=== PATIENT | female | born 1940 | race Caucasian/White ===

== ENCOUNTER 2022-10-10 19:49 | Observation (INO) | payer MEDICARE, BC, SELFPAY ==
[2022-10-10 20:14] VITALS: BP 130/69; PULSE 75; RESP 16; TEMP 37.2; O2SAT 95; BMI 22.9
--- NOTE | 2022-10-10 20:37 | ED.GENADULT ---
HPI - General Adult General Chief complaint: Weakness Stated complaint: inability to care for self at home Time Seen by Provider: 10/10/22 20:24 History of Present Illness HPI narrative: EMS report discharge from [facility] yesterday for pneumonia. Per EMS family is unable to take care of her at home and wants assistance with fdc or outside services. Patient is alert to self with obvious memory and cognitive deficits. We got to bedside commode with assist of two. Patient complained of leg pain and needed both verbal and physical cues to pivot transfer. 82-year-old woman presenting to the emergency department via EMS with increased weakness. History of Kalpana's granulomatosis. Over this last week has been hospitalized twice at [facility]. Discharged twice. Was diagnosed with pneumonia. The course of treatment is developed diarrhea. Looks like was initiated on discharged yesterday on lactobacillus and doxycycline benzonatate and guaifenesin. Metamucil as well apparently. In vancomycin presumably for diarrhea. Family unfamiliar with diagnosis of C difficile. She was discontinued on azithromycin and cefdinir. During this hospitalization between the and her 1 over this last week, she did receive a CT scan. This was noted to have worsening pneumonia. I have otherwise not seen results of this. Family is here requesting Care because she continues to be weak and confused over the course of the day. Unable to care for her at home. She could not get up from the table this evening. Her does have COPD. There is some underlying dementia as well. They are hoping for longer stay transitioning to rehab. This evening around supper was shaking and chilled. No chest pain or shortness of breath. Reportedly during this week tested negative for COVID, influenza, RSV. Related Data Home Medications Medication Instructions Recorded Confirmed Lactobacillus rhamnosus GG 10 1 cap PO BID 10/10/22 10/10/22 billion cell capsule acetaminophen 650 mg 1,300 mg PO Q12H 10/10/22 10/11/22 tablet,extended release (8HR Muscle Aches-Pain) amlodipine 2.5 mg tablet 2.5 mg PO DAILY 10/10/22 10/10/22 benzonatate 100 mg capsule 100 mg PO TID PRN 10/10/22 10/11/22 calcium carbonate 600 mg-vitamin 1 tab PO DAILY 10/10/22 10/10/22 D3 5 mcg (200 unit) tablet (Calcium 600 + D(3)) carvedilol 12.5 mg tablet 6.25 mg PO BID 10/10/22 10/10/22 doxycycline hyclate 100 mg capsule 100 mg PO BID 10/10/22 10/10/22 famotidine 20 mg tablet 20 mg PO DAILY PRN 10/10/22 10/11/22 fluticasone propionate 110 2 puff inhalation BID 10/10/22 10/10/22 mcg/actuation HFA aerosol inhaler (Flovent HFA) folic acid 1 mg tablet 1 mg PO DAILY 10/10/22 10/10/22 guaifenesin 600 mg tablet, 600 mg PO Q12H 10/10/22 10/11/22 extended release 12 hr ipratropium 0.5 mg-albuterol 3 mg 3 ml inhalation QID PRN 10/10/22 10/11/22 (2.5 mg base)/3 mL nebulization soln losartan 50 mg tablet 50 mg PO DAILY 10/10/22 10/10/22 metformin 500 mg tablet 500 mg PO DAILY 10/10/22 10/10/22 pregabalin 75 mg capsule 75 - 150 mg PO BID 10/10/22 10/11/22 timolol maleate 0.5 % eye drops 1 drp ophthalmic (eye) .AM 10/10/22 10/10/22 tramadol 50 mg tablet 25 - 50 mg PO HS PRN 10/10/22 10/10/22 trazodone 50 mg tablet 25 mg PO HS PRN 10/10/22 10/11/22 triamcinolone acetonide 0.1 % 1 applic topical BID PRN 10/10/22 10/10/22 topical cream vancomycin 125 mg capsule 125 mg PO QID 10/10/22 10/11/22 multivitamin (Daily Multi-Vitamin 1 tab PO DAILY 10/11/22 10/11/22 tablet) sodium chloride 0.9 % for 3 ml inhalation Q6H PRN 10/11/22 10/11/22 nebulization triamcinolone acetonide 55 mcg 2 spray intranasal DAILY 10/11/22 10/11/22 nasal spray aerosol (24 Hour Nasal Allergy) Allergies Allergy/AdvReac Type Severity Reaction Status Date / Time amoxicillin Allergy Intermediate Hives Verified 10/10/22 20:14 latex Allergy Intermediate Rash Verified 10/10/22 20:14 celecoxib [From Celebrex] AdvReac Severe nephritis Verified 10/10/22 20:14 NSAIDS (Non-Steroidal AdvReac Severe Wegners Verified 10/10/22 20:14 Anti-Inflamma granulomatosis omeprazole AdvReac Severe tubular Verified 10/10/22 20:14 nephritis azathioprine AdvReac Intermediate Nausea Verified 10/11/22 07:39 duloxetine [From Cymbalta] AdvReac Intermediate Diarrhea Verified 10/10/22 20:14 lisinopril AdvReac Intermediate Cough Verified 10/10/22 20:14 milk AdvReac Intermediate Gastrointestinal Verified 10/10/22 20:14 Upset Review of Systems Status of ROS: Reports: 6 or more systems reviewed and unremarkable except as noted in History and below [facility] Medical History (Updated 10/11/22 @ 13:12 by Doug Artis MD) Discharge planning issues ?Z02.9 - Encounter for administrative examinations, unspecified (ICD-10) Dementia ?F03.90 - Unspecified dementia, unspecified severity, without behavioral disturbance, psychotic disturbance, mood disturbance, and anxiety (ICD-10) Moderate malnutrition ?E44.0 - Moderate protein-calorie malnutrition (ICD-10) Pulmonary nodule ?R91.1 - Solitary pulmonary nodule (ICD-10) Lupus erythematosus ?L93.0 - Discoid lupus erythematosus (ICD-10) Falls ?W19.XXXA - Unspecified fall, initial encounter (ICD-10) Type 2 diabetes mellitus without complication ?E11.9 - Type 2 diabetes mellitus without complications (ICD-10) C. 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 - Ocular hypertension, bilateral (ICD-10) Impaired fasting glucose ?R73.01 - Impaired fasting glucose (ICD-10) Hay's granulomatosis (~08/06/09) ?M31.30 - Hay's granulomatosis without renal involvement (ICD-10) Esophageal reflux ?K21.9 - Gastro-esophageal reflux disease without esophagitis (ICD-10) Hyperlipidemia ?E78.5 - Hyperlipidemia, unspecified (ICD-10) Psoriasis ?L40.9 - Psoriasis, unspecified (ICD-10) Essential hypertension ?I10 - Essential (primary) hypertension (ICD-10) Rheumatoid arthritis ?M06.9 - Rheumatoid arthritis, unspecified (ICD-10) Surgical History (Updated 10/10/22 @ 23:03 by Florina James MD) S/P YAG capsulotomy (~01/02/13) ?Z98.890 - Other specified postprocedural states (ICD-10) [place] teeth extracted ?K08.409 - Partial loss of teeth, unspecified cause, unspecified class (ICD-10) S/P ROME-BSO (~1992) ?Z90.710 - Acquired absence of both cervix and uterus (ICD-10) ?Z90.722 - Acquired absence of ovaries, bilateral (ICD-10) ?Z90.79 - Acquired absence of other genital organ(s) (ICD-10) S/P ORIF (open reduction internal fixation) fracture (~1956) ?Z98.890 - Other specified postprocedural states (ICD-10) ?Z87.81 - Personal history of (healed) traumatic fracture (ICD-10) H/O nasal septoplasty ?Z98.890 - Other specified postprocedural states (ICD-10) Hx of colonoscopy ?Z98.890 - Other specified postprocedural states (ICD-10) H/O cataract extraction ?Z98.49 - Cataract extraction status, unspecified eye (ICD-10) History of surgical procedure on eye proper using laser (~2015) ?Z98.890 - Other specified postprocedural states (ICD-10) History of bronchoscopy ?Z98.890 - Other specified postprocedural states (ICD-10) Family History (Updated 10/10/22 @ 23:04 by Florina James MD) Father Cardiovascular disease Mother Cardiovascular disease Sister High cholesterol Social History (Updated 10/11/22 @ 00:22 by Florina James MD) Narrative: Lives with in her own home. Due to recent hospitalizations and weakness, her had started searching for assisted living. She desires to be full code. What is your current living situation: I presently have a place to live Problems where you live: no known problems Problems where you live details: n/a In the past 12 months, utilities in danger of being shut off: no In the past 12 mos, have been you worried that your food would run out before you had money to buy more?: never true In the past 12 mos, the food you bought just didn't last and you didn't have money to buy more?: never true Highest level of school completed/degree received: some college, no degree Smoking Status: Former smoker What tobacco products do you use: cigarettes Smoking packs per day: 0.5 Smoking cigarettes per day: 10.0 Years smoked: 20 Smoking pack-years: 10.00 Smoking quit date/years: >15 years ago Do you use any of these nicotine containing products: None How often do you have a drink containing alcohol: never AUDIT-C Alcohol total score: 0 Non-prescribed substance use: denies use Caffeine: Yes How often does anyone, including family, friends and others, physically hurt you: How often does anyone, including family, friends and others, insult or talk down to you: How often does anyone, including family, friends and others, threaten you with harm: How often does anyone, including family, friends and others, scream or curse at you: service: No Exam Narrative: Exam Narrative: Pleasant. Quite alert. Has a little bit of trouble with recall. Breathing easily. Skin is warm and dry. Lower extremities without ankle edema. Well perfused in extremities. Lungs with good air movement. There is crepitus throughout the left lower lung. No wheeze. Heart in a regular rate and rhythm. Abdomen is protuberant soft hyperactive bowel sounds nontender. Skin is quite warm. She is trembling huddling under blankets. Const: Vital Signs, click to edit/add: Vital Signs - 24 hr 10/10/22 20:14 Temperature 98.9 F Pulse Rate [Pulse Oximeter] 75 Respiratory Rate 16 Blood Pressure [Ri ght Upper Arm] 130/69 Pulse Oximetry 95 Oxygen Delivery Me thod Room Air Documenting provider has reviewed patient's vital signs: yes Course Vital Signs Vital signs: Initial Vital Signs Temperature 98.9 F 10/10/22 20:14 Temperature Source Temporal Artery Scan 10/10/22 20:14 Pulse Rate 75 10/10/22 20:14 Respiratory Rate 16 10/10/22 20:14 Blood Pressure 130/69 10/10/22 20:14 Blood Pressure Mean 89 10/10/22 20:14 Pulse Oximetry 95 10/10/22 20:14 Oxygen Delivery Method Room Air 10/10/22 20:14 Vital Signs Temperature 98.9 F 10/10/22 20:14 Pulse Rate 75 10/10/22 20:14 Respiratory Rate 16 10/10/22 20:14 Blood Pressure 130/69 10/10/22 20:14 Pulse Oximetry 95 10/10/22 20:14 Oxygen Delivery Method Room Air 10/10/22 20:14 Temperature 98.8 F 10/12/22 07:54 Pulse Rate 83 10/12/22 07:54 Respiratory Rate 16 10/12/22 07:54 Blood Pressure 111/70 10/12/22 07:54 Pulse Oximetry 93 10/12/22 07:54 Oxygen Delivery Method Room Air 10/12/22 07:54 Medical Decision Making MDM Narrative Medical decision making narrative: Certainly sepsis is in differential. Vitals actual look good. A repeat chest x-ray. Check labs. I am anticipating admission. She is reportedly too weak to be taken care of at home. Collecting blood cultures. Will also order C diff. was initiated on vancomycin it appears though I can not find documentation of a positive C diff test at this time in the records I am reviewing. Labs are overall reassuring though CRP rather elevated. Lactate normal. She did receive a L of normal saline. Overall did seem to have a little more energy. Chest x-ray reviewed by me does show clear infiltrate through the right lung but somewhat multifocal. Radiology over-read as below HISTORY: Recent pneumonia. Chills. COMPARISON: None available FINDINGS: A portable erect AP view of the chest was obtained at 21 32 hours. There is moderate linear patchy infiltrate in the right lower lung. There is patchy density throughout the retrocardiac left lower lobe. These are probably areas of multifocal pneumonia. There is mild vascular engorgement and mild diffuse interstitial pulmonary edema, findings of mild congestive failure. There is no sign of a pleural effusion. The heart is normal in size. There is a rounded density in the medial retrocardiac region which is probably a moderate sized hiatal hernia. There is mild scoliosis of the thoracic spine convex towards the right and of the lumbar spine convex towards the left. IMPRESSION: Mild patchy and linear right lower lung and patchy retrocardiac infiltrates, consistent with multifocal pneumonia. Probable moderate-sized hiatal hernia. Have discussed with hospitalist. Thankfully accepting provisionally for admission. Lab Data Lab results reviewed: Yes I reviewed the patient's lab results Labs: Lab Results 10/10/22 10/10/22 Range/Units 20:48 21:20 WBC 6.24 (4.50-11.00) K/uL RBC 3.83 L (4.00-5.20) m/uL Hgb 11.6 L (12.0-16.0) gm/dL Hct 35.2 (33.0-51.0) % MCV 92 (80-100) fL MCH 30 (26-34) pg MCHC 33 (32-36) gm/dL RDW Coeff of Nathalia 13.6 (11.5-15.5) % Plt Count 288 (140-440) K/uL Neut % (Auto) 67.8 (42.0-72.0) % Lymph % (Auto) 12.3 L (20-44) % [place] % (Auto) 11.4 H (0.0-11.0) % Eos % (Auto) 7.5 H (0.0-7.0) % Baso % (Auto) 0.5 (0.0-3.0) % Neut # (Auto) 4.23 (1.7-7.0) K/uL Lymph # (Auto) 0.80 L (0.90-2.90) K/uL [place] # (Auto) 0.70 (0.00-0.90) K/UL Eos # (Auto) 0.50 (0.00-0.50) K/uL Baso # (Auto) 0.03 (0.00-0.30) K/uL Sodium 134 L (135-149) mmol/L Potassium 3.8 (3.6-5.1) mmol/L Chloride 101 (96-114) mmol/L Carbon Dioxide 25 (20-32) mmol/L BUN 12 (7-30) mg/dL Creatinine 0.5 (0.5-1.5) mg/dL Estimated Creat Clear 35.49 Estimated GFR 95 ml/min Glucose 125 H (60-115) mg/dL Lactate 0.9 (0.5-1.9) mmol/L Calcium 9.7 (8.4-10.6) mg/dL Total Bilirubin 0.4 (0.1-1.5) mg/dL Direct Bilirubin 0.2 (0.0-0.5) mg/dL AST 29 (12-35) U/L ALT 27 (4-35) U/L Alkaline Phosphatase 73 (40-150) U/L C-Reactive Protein 12.0 H (0.5-1.0) mg/dL NT-Pro-B Natriuret Pep 424 pg/mL Total Protein 6.1 (6.0-8.3) g/dL Albumin 3.5 (3.3-5.0) g/dL Procalcitonin 0.14 (<0.50) ng/mL Urine Color Yellow (Yellow) Urine Appearance Clear (Clear) Urine pH 6.0 (5.0-8.5) Ur Specific [place] 1.015 (1.000-1.030) Urine Protein 1+ A (Negative) Urine Glucose (UA) Negative (Negative) Urine Ketones Trace A (Negative) Urine Blood Trace-lysed A (Negative) Urine Nitrite Negative (Negative) Urine Bilirubin Negative (Negative) Urine Urobilinogen 0.2 (0.2-1.0) Ur Leukocyte Esterase Negative (Negative) Urine RBC 0-2 (0-2) Urine WBC 0-2 (0-5) Ur Squamous Epith Cells None (None-Few) Calcium Oxalate Crystal Moderate A (None) Other Sediment Few A (None) Urine Bacteria Few A (None) Discharge Plan Discharge Clinical Impression: Weakness, Pneumonia Patient Disposition: Admitted As Inpatient Condition: Stable
[2022-10-10 20:56] LABS: Appearance Urine Clear (Clear); Bilirubin Urine Negative (Negative); Blood Urine Trace-lysed (Negative); Color Urine Yellow (Yellow); Glucose Urine Negative (Negative); Ketones Urine Trace (Negative); Leukocyte Esterase Urine Negative (Negative); Nitrite Urine Negative (Negative); Protein Urine 1+ (Negative); Specific Gravity Urine 1.015 (1.000-1.030); Urobilinogen Urine 0.2 (0.2-1.0)
--- NOTE | 2022-10-10 20:57 | CRLHL7_ITS ---
For Patients: As a result of the Century Cures Act, medical imaging exams and procedure reports are released immediately into your electronic medical record. You may view this report before your referring provider. If you have questions, please contact your health care provider. HISTORY: Recent pneumonia. Chills. COMPARISON: None available FINDINGS: A portable erect AP view of the chest was obtained at 21 32 hours. There is moderate linear patchy infiltrate in the right lower lung. There is patchy density throughout the retrocardiac left lower lobe. These are probably areas of multifocal pneumonia. There is mild vascular engorgement and mild diffuse interstitial pulmonary edema, findings of mild congestive failure. There is no sign of a pleural effusion. The heart is normal in size. There is a rounded density in the medial retrocardiac region which is probably a moderate sized hiatal hernia. There is mild scoliosis of the thoracic spine convex towards the right and of the lumbar spine convex towards the left. IMPRESSION: Mild patchy and linear right lower lung and patchy retrocardiac infiltrates, consistent with multifocal pneumonia. Probable moderate-sized hiatal hernia. Dictated by Remington Saglado MD @ 10/10/2022 10:53:59 PM (Electronically Signed)
[2022-10-10 21:08] LABS: Bacteria Urine Few; RBC Urine 0-2 (0-2); WBC Urine 0-2 (0-5)
[2022-10-10 21:09] LABS: Other Sediment Urine Few
[2022-10-10 21:10] LABS: Calcium Oxalate Crystals Urine Moderate
[2022-10-10 21:34] LABS: Lactate* 0.9 mmol/L (0.5-1.9)
[2022-10-10 21:35] LABS: Basophils Absolute Auto 0.03 K/uL (0.00-0.30); Basophils Percent Auto 0.5 % (0.0-3.0); Eosinophils Percent Auto 7.5 % (0.0-7.0); Hematocrit 35.2 % (33.0-51.0); Hemoglobin* 11.6 gm/dL (12.0-16.0); Immature Granulocytes Abs Auto 0.03 K/uL (0.00-0.30); Immature Granulocytes Pct Auto 0.5 %; Lymphocytes Percent Auto 12.3 % (20-44); Mean Corpuscular HGB Conc 33 gm/dL (32-36); Mean Corpuscular Hemoglobin 30 pg (26-34); Mean Corpuscular Volume 92 fL (80-100); Monocytes Percent Auto 11.4 % (0.0-11.0); Neutrophils Absolute Auto 4.23 K/uL (1.7-7.0); Neutrophils Percent Auto 67.8 % (42.0-72.0); Platelet Count* 288 K/uL (140-440); RDW Coefficient of Variation % 13.6 % (11.5-15.5); Red Blood Count 3.83 m/uL (4.00-5.20); White Blood Count* 6.24 K/uL (4.50-11.00)
[2022-10-10 21:44] LABS: Slide Review Reflex No
[2022-10-10] MEDS: 0.9 % SODIUM CHLORIDE 1000 ml 1,000 ML IV (21:56)
[2022-10-10 21:58] LABS: Albumin* 3.5 g/dL (3.3-5.0)
[2022-10-10 21:59] LABS: Chloride* 101 mmol/L (96-114); Potassium* 3.8 mmol/L (3.6-5.1); Sodium* 134 mmol/L (135-149)
[2022-10-10 22:01] LABS: Alkaline Phosphatase* 73 U/L (40-150); Aspartate Amino Transferase* 29 U/L (12-35); Bilirubin Direct* 0.2 mg/dL (0.0-0.5); Bilirubin Total* 0.4 mg/dL (0.1-1.5); Total Protein* 6.1 g/dL (6.0-8.3)
[2022-10-10 22:02] LABS: Alanine Aminotransferase* 27 U/L (4-35); Creatinine* 0.5 mg/dL (0.5-1.5); Est. Creatinine Clearance* 35.49; Estimated Glomerular Filt Rate 95 ml/min
[2022-10-10 22:03] LABS: Blood Urea Nitrogen* 12 mg/dL (7-30); Calcium* 9.7 mg/dL (8.4-10.6); Carbon Dioxide* 25 mmol/L (20-32); Glucose* 125 mg/dL (60-115)
[2022-10-10 22:11] LABS: NT Pro B Type NatriureticPept* 424 pg/mL
[2022-10-10 22:18] LABS: Procalcitonin* 0.14 ng/mL (<0.50)
[2022-10-10 23:36] VITALS: BP 138/57; PULSE 82; RESP 18; TEMP 37.4; O2SAT 93; BMI 26.8
--- NOTE | 2022-10-11 00:09 | P.IMHP_ITS ---
Hospitalist- H&P: HPI History of Present Illness Time Seen by Provider: 23:20 Date Seen: 10/10/22 Chief complaint: fever pneumonia Narrative: Eva Cunningham is a 82 year old female with a history of Hay's granulomatosis, rheumatoid arthritis, and diabetes mellitus type 2 who was brought to the ER by her timo for concerns of weakness. Was just discharged from [facility] yesterday morning after her 2nd hospital admission in the past week for pneumonia and weakness. Her tells me that he thought she was discharged from the hospital to soon and that is why he is bringing her here. He said that she does well in the mornings, but by afternoon she is sleeping quite a bit and then gets shaking chills and is more weak. He was unable to get her up from the chair this evening because she was so weak. He repeatedly asked me about making her an inpatient so that she could have a 3 day inpatient hospital stay in order to go to rehab. He told me that he just could not understand why she had to be observation since she was too w eak to care for herself and could not take her medications at home by herself. Her tells me that she has had pneumonia 5 times in the past few years. He does not think she has seen a pier runner. I have reviewed the hospital records from [place]. She had presented to the [facility] and was admitted from 10/03 through 10/05 for pneumonia. She was had received IV ceftriaxone and azithromycin and then was discharged with oral cefdinir and azithromycin. She return to [facility] on 10/08/2022 for worsening weakness, fevers, chills, and rigors. She had a CT that showed worsening pneumonia and she was admitted with IV cefepime and vancomycin. She had some soft but never hypotensive blood pressures which responded well to IV fluids. She had a negative MRSA swab and was transitioned to cefepime and doxycycline. During this time she tested positive for C difficile and was started on oral vancomycin with a probiotic. Physical therapy determined that she was safe to return home but needed 247 supervision due to cognitive decline. According to the [place] notes, the patient's has been expressed hope that she would meet the criteria for 3 night inpatient stay for short-term rehab. She was discharged home on doxycycline and oral vancomycin. Review of Systems Status of ROS: Reports: 10 or more systems reviewed and unremarkable except as noted in History and below Const: Reports: chills and fatigue GI: Reports: diarrhea (3-4 watery stools per day); Denies: abdominal pain, nausea, vomiting or blood in stool Musculo: Reports: muscle weakness (Generalized) Endo: Reports: fatigue PFSH [facility] Medical History (Updated 10/11/22 @ 00:35 by Florina James MD) Moderate malnutrition ?E44.0 - Moderate protein-calorie malnutrition (ICD-10) Pulmonary nodule ?R91.1 - Solitary pulmonary nodule (ICD-10) Lupus erythematosus ?L93.0 - Discoid lupus erythematosus (ICD-10) Falls ?W19.XXXA - Unspecified fall, initial encounter (ICD-10) Type 2 diabetes mellitus without complication ?E11.9 - Type 2 diabetes mellitus without complications (ICD-10) C. 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 - Ocular hypertension, bilateral (ICD-10) Impaired fasting glucose ?R73.01 - Impaired fasting glucose (ICD-10) Hay's granulomatosis (~08/06/09) ?M31.30 - Hay's granulomatosis without renal involvement (ICD-10) Esophageal reflux ?K21.9 - Gastro-esophageal reflux disease without esophagitis (ICD-10) Hyperlipidemia ?E78.5 - Hyperlipidemia, unspecified (ICD-10) Psoriasis ?L40.9 - Psoriasis, unspecified (ICD-10) Essential hypertension ?I10 - Essential (primary) hypertension (ICD-10) Rheumatoid arthritis ?M06.9 - Rheumatoid arthritis, unspecified (ICD-10) Surgical History (Updated 10/10/22 @ 23:03 by Florina James MD) S/P YAG capsulotomy (~01/02/13) ?Z98.890 - Other specified postprocedural states (ICD-10) [place] teeth extracted ?K08.409 - Partial loss of teeth, unspecified cause, unspecified class (ICD- 10) S/P ROME-BSO (~1992) ?Z90.710 - Acquired absence of both cervix and uterus (ICD-10) ?Z90.722 - Acquired absence of ovaries, bilateral (ICD-10) ?Z90.79 - Acquired absence of other genital organ(s) (ICD-10) S/P ORIF (open reduction internal fixation) fracture (~1956) ?Z98.890 - Other specified postprocedural states (ICD-10) ?Z87.81 - Personal history of (healed) traumatic fracture (ICD-10) H/O nasal septoplasty ?Z98.890 - Other specified postprocedural states (ICD-10) Hx of colonoscopy ?Z98.890 - Other specified postprocedural states (ICD-10) H/O cataract extraction ?Z98.49 - Cataract extraction status, unspecified eye (ICD-10) History of surgical procedure on eye proper using laser (~2015) ?Z98.890 - Other specified postprocedural states (ICD-10) History of bronchoscopy ?Z98.890 - Other specified postprocedural states (ICD-10) Family History (Updated 10/10/22 @ 23:04 by Florina James MD) Father Cardiovascular disease Mother Cardiovascular disease Sister High cholesterol Social History (Updated 10/11/22 @ 00:22 by Florina James MD) Narrative: Lives with in her own home. Due to recent hospitalizations and weakness, her had started searching for assisted living. She desires to be full code. What is your current living situation: I presently have a place to live Problems where you live: no known problems Problems where you live details: n/a In the past 12 months, utilities in danger of being shut off: no In the past 12 mos, have been you worried that your food would run out before you had money to buy more?: never true In the past 12 mos, the food you bought just didn't last and you didn't have money to buy more?: never true Highest level of school completed/degree received: some college, no degree Smoking Status: Former smoker What tobacco products do you use: cigarettes Smoking packs per day: 0.5 Smoking cigarettes per day: 10.0 Years smoked: 20 Smoking pack-years: 10.00 Smoking quit date/years: >15 years ago Do you use any of these nicotine containing products: None How often do you have a drink containing alcohol: never AUDIT-C Alcohol total score: 0 Non-prescribed substance use: denies use Caffeine: Yes How often does anyone, including family, friends and others, physically hurt you : How often does anyone, including family, friends and others, insult or talk down to you: How often does anyone, including family, friends and others, threaten you with harm: How often does anyone, including family, friends and others, scream or curse at you: service: No Meds Home Medications and Allergies Home Medications Medication Instructions Recorded Confirmed Type Lactobacillus rhamnosus GG 10 1 cap PO BID 10/10/22 10/10/22 History billion cell capsule acetaminophen 650 mg 1,300 mg PO Q12H PRN 10/10/22 10/10/22 History tablet,extended release (8HR Muscle Aches-Pain) amlodipine 2.5 mg tablet 2.5 mg PO DAILY 10/10/22 10/10/22 History benzonatate 100 mg capsule 100 mg PO BID-TID PRN 10/10/22 10/10/22 History calcium carbonate 600 mg-vitamin 1 tab PO DAILY 10/10/22 10/10/22 History D3 5 mcg (200 unit) tablet (Calcium 600 + D(3)) carvedilol 12.5 mg tablet 6.25 mg PO BID 10/10/22 10/10/22 History doxycycline hyclate 100 mg capsule 100 mg PO BID 10/10/22 10/10/22 History famotidine 20 mg tablet 20 mg PO DAILY 10/10/22 10/10/22 History fluticasone propionate 110 2 puff inhalation BID 10/10/22 10/10/22 History mcg/actuation HFA aerosol inhaler (Flovent HFA) folic acid 1 mg tablet 1 mg PO DAILY 10/10/22 10/10/22 History guaifenesin 600 mg tablet, 600 mg PO Q12H PRN 10/10/22 10/10/22 History extended release 12 hr ipratropium 0.5 mg-albuterol 3 mg 3 ml inhalation Q6-8H PRN 10/10/22 10/10/22 History (2.5 mg base)/3 mL nebulization soln losartan 50 mg tablet 50 mg PO DAILY 10/10/22 10/10/22 History metformin 500 mg tablet 500 mg PO DAILY 10/10/22 10/10/22 History pregabalin 75 mg capsule 75 mg PO 3XD 10/10/22 10/10/22 History timolol maleate 0.5 % eye drops 1 drp ophthalmic (eye) .AM 10/10/22 10/10/22 History tramadol 50 mg tablet 25 - 50 mg PO HS PRN 10/10/22 10/10/22 History trazodone 50 mg tablet 25 mg PO QPM PRN 10/10/22 10/10/22 History triamcinolone acetonide 0.1 % 1 applic topical BID PRN 10/10/22 10/10/22 History topical cream vancomycin 125 mg capsule 125 mg PO Q6H 10/10/22 10/10/22 History Allergies Allergy/AdvReac Type Severity Reaction Status Date / Time amoxicillin Allergy Intermediate Hives Verified 10/10/22 20:14 latex Allergy Intermediate Rash Verified 10/10/22 20:14 celecoxib [From Celebrex] AdvReac Severe nephritis Verified 10/10/22 20:14 NSAIDS (Non-Steroidal AdvReac Severe Wegners Verified 10/10/22 20:14 Anti-Inflamma granulomatosis omeprazole AdvReac Severe tubular Verified 10/10/22 20:14 nephritis duloxetine [From Cymbalta] AdvReac Intermediate Diarrhea Verified 10/10/22 20:14 lisinopril AdvReac Intermediate Cough Verified 10/10/22 20:14 milk AdvReac Intermediate Gastrointestinal Verified 10/10/22 20:14 Upset azathioprine AdvReac Intermediate Nausea Uncoded 10/10/22 20:14 Exam Narrative: Exam Narrative: General: No acute distress. Pleasant, smiling. Awake, alert, oriented to self and place. HEENT: Normocephalic atraumatic, pupils equally round and reactive to light and accommodation. Oropharynx clear. Mucous membranes are moist. No cervical lymphadenopathy, thyromegaly or carotid bruits. No JVD. Cardiovascular: Regular rate and rhythm. No murmurs, gallops, or rubs. Chest: No increased work of breathing. Bibasilar crackles, left worse than right. No wheezes. Abdomen: Bowel sounds present. Soft, nondistended, nontender. No hepatospleno megaly or masses. Extremities: Metacarpophalangeal joints are enlarged and deformed with medial deviation all fingers on both hands. 2+ pitting edema of bilateral ankles, no cyanosis or clubbing. Skin: No jaundice, no pallor, no rashes. Neuro: There are no focal deficits. Romberg is negative. Gait is impaired, she is generally weak and requires 2 people to assist her to pivot to the commode and then transfer back into bed. Cranial nerves 2-12 are intact. No nystagmus. No facial asymmetry. Tongue is midline. Strength is 4/5 in all 4 extremities. Light touch sensation is intact. Const: Vital Signs, click to edit/add: Vital Signs - 24 hr 10/10/22 20:14 Temperature 98.9 F Pulse Rate [Pulse Oximeter] 75 Respiratory Rate 16 [facility] 130/69 Pulse Oximetry 95 Oxygen Delivery Me thod Room Air Documenting provider has reviewed patient's vital signs: yes Hospitalist - H&P: Result Labs Labs: Short CBC 10/10/22 Range/Units 21:20 WBC 6.24 (4.50-11.00) K/uL Hgb 11.6 L (12.0-16.0) gm/dL Hct 35.2 (33.0-51.0) % Plt Count 288 (140-440) K/uL BMP 10/10/22 21:20 Sodium 134 L Potassium 3.8 Chloride 101 Carbon Dioxide 25 BUN 12 Creatinine 0.5 Glucose 125 H Calcium 9.7 Liver Function 10/10/22 Range/Units 21:20 Total Bilirubin 0.4 (0.1-1.5) mg/dL Direct Bilirubin 0.2 (0.0-0.5) mg/dL AST 29 (12-35) U/L ALT 27 (4-35) U/L Alkaline Phosphatase 73 (40-150) U/L Albumin 3.5 (3.3-5.0) g/dL Urine 10/10/22 Range/Units 20:48 Urine Color Yellow (Yellow) Urine Appearance Clear (Clear) Urine pH 6.0 (5.0-8.5) Ur Specific [place] 1.015 (1.000-1.030) Urine Protein 1+ A (Negative) Urine Glucose (UA) Negative (Negative) Ordering Physician: Isaak Elizalde M.D. Date of Service: 10/10/22 Procedure(s): XR chest 1V portable Accession Number(s): [id number] cc: Provider,Not a Local; Isaak Elizalde M.D.~ For Patients: As a result of the Cures Act, medical imaging exams and procedure reports are released immediately into your electronic medical record. You may view this report before your referring provider. If you have questions, please contact your health care provider. HISTORY: Recent pneumonia. Chills. COMPARISON: None available FINDINGS: A portable erect AP view of the chest was obtained at 21 32 hours. There is moderate linear patchy infiltrate in the right lower lung. There is patchy density throughout the retrocardiac left lower lobe. These are probably areas of multifocal pneumonia. There is mild vascular engorgement and mild diffuse interstitial pulmonary edema, findings of mild congestive failure. There is no sign of a pleural effusion. The heart is normal in size. There is a rounded density in the medial retrocardiac region which is probably a moderate sized hiatal hernia. There is mild scoliosis of the thoracic spine convex towards the right and of the lumbar spine convex towards the left. IMPRESSION: Mild patchy and linear right lower lung and patchy retrocardiac infiltrates, consistent with multifocal pneumonia. Probable moderate-sized hiatal hernia. Dictated by Remington Salgado MD @ 10/10/2022 10:53:59 PM (Electronically Signed) Assessment and Plan Assessment and plan (1) Weakness: Problem comment: Suspect that this is multifactorial secondary to recent pneumonia and C difficile infection. Unclear what her baseline is, although her says that she was doing most things for herself prior to getting sick with pneumonia recently. Status: Acute (2) Pneumonia: Problem comment: - Multifocal pneumonia treated recently with multiple antibiotics, currently on doxycycline, MRSA swab negative at recent [facility] admission - Bacterial vs. inflammatory in setting of RA/Hay's - continue doxycycline, total course of antibiotics will be 10 days, last day should be 10/12/2022. Status: Acute (3) C. difficile colitis: Problem comment: - Diagnosed at [facility] 10/08/22, treating with po robeo, due to finish 10 day course on 10/19/22 - still having 3-4 watery stools per day; continue C diff precautions; continue oral vancomycin, consider 14 day course; continue lactobacillus Status: Acute (4) Moderate malnutrition: Problem comment: Per [facility] records 10/08/22: Weight: 58.9 kg Weight Loss: >7.5% in 3 months Average estimated Intake: Less than or equal to 75% for 1 or more months Muscle Mass: Normal Body Fat: Normal Fluid Accumulation: Absent Start nutrition supplementation 3 times a day. If diarrhea worsens with this, consider nutrition consult. Status: Acute (5) Pulmonary nodule: Problem comment: Found on CT 09/2022 in [place]. Needs outpatient f/u in 3 months. Status: Chronic (6) Type 2 diabetes mellitus without complication: Problem comment: Continue metformin, add insulin sliding scale with meals and at bedtime Status: Chronic (7) Hay's granulomatosis: Problem comment: - Followed at [place] by Dr Ochoa - without renal involvement, baseline Cr is 0.7-0.9 Status: Chronic (8) Essential hypertension: Problem comment: Continue home medications Status: Chronic (9) Rheumatoid arthritis: Problem comment: [facility]: Question diagnosis now that patient diagnosed with Hay's - holding methotrexate while on doxycycline - will need outpatient follow-up with her property consultant at [place] Status: Chronic Plan Admit for observation, PT and OT evaluations, consult social work to help with discharge planning for probable need for rehab
[2022-10-11] MEDS: VANCOMYCIN 125 MG CAPSULE PO ×4 (00:11→18:53)
[2022-10-11 02:45] VITALS: BP 152/71; PULSE 83; RESP 18; TEMP 37.3; O2SAT 93
--- NOTE | 2022-10-11 06:08 | PC.NURSE ---
Patient admitted to the unit at 2320. Patient w/dementia is pleasant and alert to self. Julius at bedside and answers admission questions. A2/walker and pivot to BSC. Difficulty following simple instructions. Denies pain.
[2022-10-11 08:02] VITALS: BP 119/70; PULSE 76; RESP 18; TEMP 37.1; O2SAT 93
[2022-10-11] MEDS: LOSARTAN POTASSIUM 50 MG TABLET PO (08:06)
[2022-10-11] MEDS: METFORMIN 500 MG TABLET PO (08:06)
[2022-10-11] MEDS: AMLODIPINE 5 MG TABLET 2.5 MG PO (08:06)
[2022-10-11] MEDS: FAMOTIDINE 20 MG TABLET PO (08:07)
[2022-10-11] MEDS: FOLIC ACID 1 MG TABLET PO (08:08)
[2022-10-11 09:25] LABS: C.Difficile Negative (Negative); CDIFFEPI 027 PRESUMPTIVE NEGATIVE (Negative)
[2022-10-11] MEDS: FLUTICASONE 110 MCG INHALER 2 PUFF IH ×2 (09:54→21:05)
[2022-10-11] MEDS: DOXYCYCLINE HYCLATE 100 MG CAPSULE PO ×2 (09:54→21:06)
[2022-10-11] MEDS: carvediloL 6.25 MG TABLET PO ×2 (09:55→21:06)
[2022-10-11] MEDS: PREGABALIN 75 MG CAPSULE PO (09:56)
[2022-10-11] MEDS: LACTOBACILLUS ACIDOPHILUS 1 TABLET 1 TAB PO ×2 (10:19→21:06)
[2022-10-11] MEDS: timoloL maleate 0.5 % 1 DROP EYE-BOTH (10:19)
[2022-10-11] MEDS: SODIUM CHLORIDE 0.9 % (FLUSH) 10 ML SYRINGE 5 ML IVF ×2 (10:19→21:05)
[2022-10-11 12:18] VITALS: BP 109/73; PULSE 72; RESP 18; TEMP 37.3; O2SAT 96
--- NOTE | 2022-10-11 13:01 | P.IMPN_ITS ---
Progress Note: A&P Assessment and plan (1) Rheumatoid arthritis: Problem details: From [facility]: Question diagnosis now that patient diagnosed with Hay's - holding methotrexate while on doxycycline - will need outpatient follow-up with her stucco plasterer at [place] Status: Chronic (2) Pneumonia: Problem details: - Multifocal pneumonia treated recently with multiple antibiotics, currently on doxycycline, MRSA swab negative at recent [facility] admission - Bacterial vs. inflammatory in setting of RA/Hay's - continue doxycycline, total course of antibiotics will be 10 days, last day should be 10/12/2022. With history of recurrent pneumonia may have aspiration problems or chronic pulmonary problems. Status: Acute (3) C. difficile colitis: Problem details: - Diagnosed at [facility] 10/08/22, treating with bell puckett, due to finish 10 day course on 10/19/22 - still having 3-4 watery stools per day; continue C diff precautions; continue oral vancomycin, plan 10 day course; continue lactobacillus Status: Acute (4) Weakness: Problem details: Suspect that this is multifactorial secondary to recent pneumonia and C difficile infection. Unclear what her baseline is, although her says that she was doing most things for herself prior to getting sick with pneumonia recently. Status: Acute (5) Hay's granulomatosis: Problem details: - Followed at [place] by Dr Ochoa - without renal involvement, baseline Cr is 0.7-0.9. Needs rheumatology follow- up to address restarting methotrexate Status: Chronic (6) Essential hypertension: Problem details: Continue home medications Status: Chronic (7) Type 2 diabetes mellitus without complication: Problem details: Continue metformin, add insulin sliding scale with meals and at bedtime Status: Chronic (8) Pulmonary nodule: Problem details: Found on CT 09/2022 in [facility]. Needs outpatient f/u in 3 months. Status: Chronic (9) Moderate malnutrition: Problem details: Per [facility] records 10/08/22: Weight: 58.9 kg Weight Loss: >7.5% in 3 months Average estimated Intake: Less than or equal to 75% for 1 or more months Muscle Mass: Normal Body Fat: Normal Fluid Accumulation: Absent Start nutrition supplementation 3 times a day. If diarrhea worsens with this, consider nutrition consult. Status: Acute (10) Dementia: Problem details: Slums score this week in [place] Status: Acute (11) Discharge planning issues: Problem details: feels patient is not safe to be at home. Does not have resources to care for her in the home. Brick Setter consult. Status: Acute Plan Continue in hospital for evaluation management of pneumonia and C diff infection as well as evaluation management of disabilities and weakness. At this time plan will be to discharge tomorrow based on the plan that is worked out between the patient's and manager social media Time Spent With Patient Total time spent: Total time spent today is 40 minutes, 30 minutes in coordination of care and discussing with patient's current health status of his , ongoing plan of care and Medicare guidelines for reimbursement of rehab stays in the half-way. Subjective Date Seen: 10/11/22 Interval history: Eva Cunningham is a 82 year old female with a history of Hay's granulomatosis, rheumatoid arthritis, and diabetes mellitus type 2 who was brought to the ER by her timo for concerns of weakness.? Was just discharged from [facility] yesterday morning after her 2nd hospital admission in the past week for pneumonia and weakness.? Her tells me that he thought she was discharged from the hospital too soon and that is why he is bringing her here.? He said that she does well in the mornings, but by afternoon she is sleeping quite a bit and then gets shaking chills and is more weak.? He was unable to get her up from the chair this evening because she was so weak.? He repeatedly asked me about making her an inpatient so that she could have a 3 day inpatient hospital stay in order to go to rehab.? He told me that he just could not understand why she had to be observation since she was too weak to care for herself and could not take her medications at home by herself.? Her tells me that she has had pneumonia 5 times in the past few years.? He does not think she has seen a cementer helper. I have reviewed the hospital records from [place].? She had presented to the [facility] and was admitted from 10/03 through 10/05 for pneumonia.? She was had received IV ceftriaxone and azithromycin and then was discharged with oral cefdinir and azithromycin.? She return to [facility] on 10/08/2022 for worsening weakness, fevers, chills, and rigors.? She had a CT that showed worsening pneumonia and she was admitted with IV cefepime and vancomycin.? She had some soft but never hypotensive blood pressures which responded well to IV fluids.? She had a negative MRSA swab and was transitioned to cefepime and doxycycline.? During this time she tested positive for C difficile and was started on oral vancomycin with a probiotic.? Physical therapy determined that she was safe to return home but needed 24/7 supervision due to cognitive decline.? According to the [place] notes, the patient's has been expressed hope that she would meet the criteria for 3 night inpatient stay for short-term rehab.? She was discharged home on doxycycline and oral vancomycin. Patient today reports no concerns. She has dementia and is not oriented to her circumstances. She is not having shortness of breath, chest pain, fever or cough. Nursing staff note that she is standing and walking with a walker with standby assistance. C diff test today is negative. I spoke with her who again reiterates a hope that patient can be placed in a half-way. I indicated at this time that she has no clear indication for hospitalization. We discussed options for ongoing management and fpc care. It is unclear to me at this point whether her primary issues are chronic disabilities related to unsteady gait requiring a walker and dementia or acute related to her pneumonia and C diff infection or combination of those. Exam Narrative: Exam Narrative: She is alert and appears in no distress. Sitting in a chair. Breathing without difficulties on room air. Respirations are clear to auscultation. Card iovascular: S1, S2, regular rate and rhythm. Abdomen is soft without tenderness or mass. Extremities without edema. Const: Vital Signs, click to edit/add: Vital Signs - 24 hr 10/10/22 20:14 10/10/22 23:36 10/11/22 02:45 Temperature 98.9 F 99.3 F 99.1 F Pulse Rate [Pulse Oximeter] 75 82 83 Respiratory Rate 16 18 18 Blood Pressure [Ri ght Arm] 138/57 L 152/71 H Blood Pressure [Ri ght Upper Arm] 130/69 Pulse Oximetry 95 93 93 Oxygen Delivery Me thod Room Air Room Air Room Air 10/11/22 08:02 10/11/22 12:18 Temperature 98.7 F 99.1 F Pulse Rate [Pulse Oximeter] 76 72 Respiratory Rate 18 18 Blood Pressure [Ri ght Arm] 119/70 109/73 [facility] Pulse Oximetry 93 96 Oxygen Delivery Me thod Room Air Room Air Documenting provider has reviewed patient's vital signs: yes Labs Labs: Laboratory Results - last 24 hr 10/10/22 10/10/22 10/11/22 20:48 21:20 07:50 WBC 6.24 RBC 3.83 L Hgb 11.6 L Hct 35.2 MCV 92 MCH 30 MCHC 33 RDW Coeff of Nathalia 13.6 Plt Count 288 Neut % (Auto) 67.8 Lymph % (Auto) 12.3 L Ma[place] % (Auto) 11.4 H Eos % (Auto) 7.5 H Baso % (Auto) 0.5 Neut # (Auto) 4.23 Lymph # (Auto) 0.80 L [place] # (Auto) 0.70 Eos # (Auto) 0.50 Baso # (Auto) 0.03 Sodium 134 L Potassium 3.8 Chloride 101 Carbon Dioxide 25 BUN 12 Creatinine 0.5 Estimated Creat Clear 35.49 Estimated GFR 95 Glucose 125 H Lactate 0.9 Calcium 9.7 Total Bilirubin 0.4 Direct Bilirubin 0.2 AST 29 ALT 27 Alkaline Phosphatase 73 C-Reactive Protein 12.0 H NT-Pro-B Natriuret Pep 424 Total Protein 6.1 Albumin 3.5 Procalcitonin 0.14 Urine Color Yellow Urine Appearance Clear Urine pH 6.0 Ur Specific [place] 1.015 Urine Protein 1+ A Urine Glucose (UA) Negative Urine Ketones Trace A Urine Blood Trace-lysed A Urine Nitrite Negative Urine Bilirubin Negative Urine Urobilinogen 0.2 Ur Leukocyte Esterase Negative Urine RBC 0-2 Urine WBC 0-2 Ur Squamous Epith Cells None Calcium Oxalate Crystal Moderate A Other Sediment Few A Urine Bacteria Few A Stl C. diff Tox B Gene Negative Stl C. diff [id number] PRESUMPTIVE NEGATIVE
[2022-10-11 17:14] VITALS: BP 129/80; PULSE 65; RESP 18; TEMP 36.3; O2SAT 96
--- NOTE | 2022-10-11 18:25 | PC.NURSE ---
shift note: vss stable. pt up 1/walker to transfer to surfaces. pt has poor short term recall. pt orient to self and . pt needing direction to eat and perform ADL's. LS clr. HR reg. IV patent lt AC
[2022-10-11 20:48] VITALS: BP 138/56; PULSE 70; RESP 18; TEMP 37; O2SAT 96
[2022-10-11] MEDS: PREGABALIN 75 MG CAPSULE 150 MG PO (21:05)
[2022-10-11 23:00] VITALS: RESP 16
[2022-10-12] MEDS: VANCOMYCIN 125 MG CAPSULE PO ×3 (00:48→11:35)
[2022-10-12 04:00] VITALS: RESP 16
[2022-10-12 07:54] VITALS: BP 111/70; PULSE 83; RESP 16; TEMP 37.1; O2SAT 93
[2022-10-12] MEDS: AMLODIPINE 5 MG TABLET 2.5 MG PO (08:40)
[2022-10-12] MEDS: FLUTICASONE 110 MCG INHALER 2 PUFF IH (08:40)
[2022-10-12] MEDS: timoloL maleate 0.5 % 1 DROP EYE-BOTH (08:40)
[2022-10-12] MEDS: METFORMIN 500 MG TABLET PO (08:41)
[2022-10-12] MEDS: LOSARTAN POTASSIUM 50 MG TABLET PO (08:41)
[2022-10-12] MEDS: PREGABALIN 75 MG CAPSULE PO (08:41)
[2022-10-12] MEDS: FAMOTIDINE 20 MG TABLET PO (08:41)
[2022-10-12] MEDS: LACTOBACILLUS ACIDOPHILUS 1 TABLET 1 TAB PO (08:41)
[2022-10-12] MEDS: DOXYCYCLINE HYCLATE 100 MG CAPSULE PO (08:42)
[2022-10-12] MEDS: carvediloL 6.25 MG TABLET PO (08:42)
[2022-10-12] MEDS: SODIUM CHLORIDE 0.9 % (FLUSH) 10 ML SYRINGE 5 ML IVF (08:42)
[2022-10-12] MEDS: FOLIC ACID 1 MG TABLET PO (08:42)
[2022-10-12 11:30] VITALS: BP 103/64; PULSE 69; RESP 16; TEMP 37.1; O2SAT 93
[2022-10-12 12:44] VITALS: RESP 16; TEMP 37.1
[2022-10-12 12:46] VITALS: BP 103/64; PULSE 69; RESP 16; TEMP 37.1
--- NOTE | 2022-10-12 13:13 | PC.NURSE ---
Pt alert to self and place. Pt had no complaints of pain. VSS. Blood glucose readings am 86, noon 91. Pt up to chair during shift. Pt napped throughout shift. Iv removed at 1250. Report given to Lyn BOLANOS in remote computer terminal operator care center at [facility]. Pt brought down by staff.? ?
--- NOTE | 2022-10-12 14:47 | PM.DS1 ---
DS: Providers Provider Date Seen: 10/12/22 Date of admission: 10/10/22 23:10 Primary care physician: Danny Lynch MD Admitting Clinician: Florina James MD Attending Physician on discharge: Ovi Artis MD Date of Discharge: 10/12/22 DS: Diagnosis Discharge Diagnosis (1) Weakness: Status: Acute Problem details: Suspect that this is multifactorial secondary to recent pneumonia and C difficile infection. Unclear what her baseline is, although her says that she was doing most things for herself prior to getting sick with pneumonia recently. (2) Pneumonia: Status: Acute Problem details: - Multifocal pneumonia treated recently with multiple antibiotics, currently on doxycycline, MRSA swab negative at recent [facility] admission - continue doxycycline, total course of antibiotics will be 5 more days. With history of recurrent pneumonia may have aspiration problems or chronic pulmonary problems. (3) Hay's granulomatosis: Status: Chronic Problem details: - Followed at [facility] by Dr Ochoa - without renal involvement, baseline Cr is 0.7-0.9. Needs rheumatology follow-up to address restarting methotrexate (4) C. difficile colitis: Status: Acute Problem details: - Diagnosed at [facility] 10/08/22, treating with bell puckett, due to finish 10 day course on 10/19/22 - still having 3-4 watery stools per day; continue C diff precautions; continue oral vancomycin, plan 10 day course; continue lactobacillus (5) Type 2 diabetes mellitus without complication: Status: Chronic Problem details: Continue metformin (6) Pulmonary nodule: Status: Chronic Problem details: Found on CT 09/2022 in [facility]. Needs outpatient f/u in 3 months. (7) Moderate malnutrition: Status: Acute Problem details: Per [facility] records 10/08/22: Weight: 58.9 kg Weight Loss: >7.5% in 3 months Average estimated Intake: Less than or equal to 75% for 1 or more months Muscle Mass: Normal Body Fat: Normal Fluid Accumulation: Absent (8) Rheumatoid arthritis: Status: Chronic Problem details: From [facility]: Question diagnosis now that patient diagnosed with Hay's - holding methotrexate while on doxycycline - will need outpatient follow-up with her fan engine engineer at [facility] at next available appointment (9) Dementia: Status: Acute Problem details: Slums score this week in [place] . Needs 24/7 supervision (10) Discharge planning issues: Status: Acute Problem details: feels patient is not safe to be at home. Does not have resources to care for her in the home. To long-term care center for about 1 week pending assisted living or memory care next week. (11) Essential hypertension: Status: Chronic Problem details: Continue home medications DS: Summary Hospital Course Hospital Course: 82-year-old female admitted to the hospital for the 3rd time in the past week. Initial admission to [facility] with bilateral pneumonia. Treated with a Zithromax and ceftriaxone. Clinically improved and was discharged to home. felt she was too weak to be safe at home and brought her back to the hospital for 2nd admission.. At that time she was diagnosed with C diff infection and started on oral vancomycin. She was discharged home again with a recommendation that she have standby assistance and 24/7 supervision. continue to feel that she was too weak to be safe at home and brought her to our hospital. Evaluation here showed that she still had pneumonia on her chest x-ray but was not hypoxic or febrile. She was still having minimal diarrhea. No significant dehydration or electrolyte problems. Therapy deemed that she needed standby assistance and 24/7 supervision. Prolonged discussion with the about options for care for her led to the decision to be discharged to our long-term care center pending placement next week in assisted living or memory care in [place]. Today she reports feeling well. No pain, cough, fever, dyspnea, nausea. She has had no diarrhea. Status at Discharge Functional status at discharge: uses cane/walker Overall status at discharge: patient is progressing back to baseline Time Spent with Patient Time attestation: Total time spent providing and/or coordinating discharge services: Time spent: Less than 30 minutes Exam Narrative: Exam Narrative: She is alert no distress. Breathing is unlabored. Respirations are clear to auscultation. Cardiovascular: S1, S2, regular rate and rhythm. Abdomen is soft without tenderness or mass. Extremities without edema. Const: Vital Signs, click to edit/add: Vital Signs - 24 hr 10/11/22 17:14 10/11/22 20:48 10/11/22 23:00 Temperature 97.4 F L 98.6 F Pulse Rate Pulse Rate [Pulse Oximeter] 65 70 Respiratory Rate 18 18 16 Blood Pressure Blood Pressure [Ri ght Arm] 129/80 138/56 L Pulse Oximetry 96 96 Oxygen Delivery Me thod Room Air Room Air 10/12/22 04:00 10/12/22 07:54 10/12/22 07:54 Temperature 98.8 F Pulse Rate Pulse Rate [Pulse Oximeter] 83 83 Respiratory Rate 16 16 Blood Pressure Blood Pressure [Ri ght Arm] 111/70 Pulse Oximetry 93 Oxygen Delivery Me thod Room Air 10/12/22 11:30 10/12/22 12:44 10/12/22 12:46 Temperature 98.7 F 98.7 F 98.7 F Pulse Rate 69 Pulse Rate [Pulse Oximeter] 69 Respiratory Rate 16 16 16 Blood Pressure 103/64 Blood Pressure [Ri ght Arm] 103/64 Pulse Oximetry 93 Oxygen Delivery Me thod Room Air Documenting provider has reviewed patient's vital signs: yes DS: Data Data Completed and Pending Labs on day of discharge: Preliminary micro results at discharge 10/10/22 21:25 Blood Culture - Preliminary Blood NO GROWTH AFTER 24 HOURS 10/10/22 21:20 Blood Culture - Preliminary Blood NO GROWTH AFTER 24 HOURS Discharge Plan Discharge Disposition: [facility] Date of Admission: 10/10/22 23:10 Attending Provider on Discharge: Doug Artis Primary Care Provider: Danny Lynch Condition: Stable Discharge Medications: New doxycycline hyclate 100 mg Capsule 100 mg PO BID Qty: 10 0RF vancomycin 125 mg Capsule 125 mg PO Q6H 7 Days Qty: 28 0RF Continued acetaminophen [8HR Muscle Aches-Pain] 650 mg tablet extended release 1,300 mg PO Q12H amlodipine 2.5 mg tablet 2.5 mg PO DAILY benzonatate 100 mg capsule 100 mg PO TID PRN calcium carbonate-vitamin D3 [Calcium 600 + D(3)] 600 mg-5 mcg (200 unit) tablet 1 tab PO DAILY carvedilol 12.5 mg tablet 6.25 mg PO BID doxycycline hyclate 100 mg capsule 100 mg PO BID Patient Comments: last day 10/12/22 famotidine 20 mg tablet 20 mg PO DAILY PRN folic acid 1 mg tablet 1 mg PO DAILY fluticasone propionate [Flovent HFA] 110 mcg/actuation HFA aerosol inhaler 2 puff inhalation BID guaifenesin 600 mg tablet extended release 12hr 600 mg PO Q12H ipratropium-albuterol 0.5 mg-3 mg(2.5 mg base)/3 mL solution for nebulization 3 ml inhalation QID PRN losartan 50 mg tablet 50 mg PO DAILY metformin 500 mg tablet 500 mg PO DAILY timolol maleate 0.5 % drops 1 drp ophthalmic (eye) .AM Rx Instructions: 1 drop in left eye every AM pregabalin 75 mg capsule 75 - 150 mg PO BID Patient Comments: 1 cap in the morning and 2 caps in the evening trazodone 50 mg tablet 25 mg PO HS PRN triamcinolone acetonide 0.1 % cream 1 applic topical BID PRN Rx Instructions: apply thin layer to affected area as needed for itching vancomycin 125 mg capsule 125 mg PO QID Patient Comments: last dose 10/19/22 Lactobacillus rhamnosus GG 10 billion cell capsule 1 cap PO BID multivitamin [Daily Multi-Vitamin] Tablet 1 tab PO DAILY sodium chloride 0.9 % solution for nebulization 3 ml inhalation Q6H PRN triamcinolone acetonide [24 Hour Nasal Allergy] 55 mcg aerosol,spray 2 spray intranasal DAILY Rx Instructions: administer into each nostril Discontinued tramadol 50 mg tablet 25 - 50 mg PO HS PRN Discharge Orders: Discharge Order (Routine); Ordered 10/12/22 Ordered By: Doug Artis Additional Instructions: Arrange outpatient Rheumatology follow-up at next available appointment Activity Level: Up with assist and Use Walker Discharge Diet: Regular Follow Up Appointments: Provider,Not a Local [Referring] - Danny Lynch MD [Primary Care Provider] - Admit to: SNF Discharge Potential: Good Length of Stay: <30 days Can use facility standing orders?: Yes Code Status: Full Code TEDs: N/A Rehab Potential: Fair
== END 2022-10-12 13:00 ==
LOC: ED 22:43 → MEDSURG 23:10
PROVIDERS: Admitting Provider Family Medicine; Emergency Provider Family Medicine; PCP Student in an Organized Health Care Education/Training Program; Visit Provider Family Medicine
DX: J18.9 Pneumonia, unspecified organism (principal); A04.72 Enterocolitis due to Clostridium difficile, not specified as recurrent; M31.30 Wegener's granulomatosis without renal involvement; M06.9 Rheumatoid arthritis, unspecified; R79.82 Elevated C-reactive protein (CRP); R91.1 Solitary pulmonary nodule; E44.0 Moderate protein-calorie malnutrition; F03.90 Unspecified dementia, unspecified severity, without behavioral disturbance, psychotic disturbance, mood disturbance, and anxiety; I10 Essential (primary) hypertension; K21.9 Gastro-esophageal reflux disease without esophagitis; E78.5 Hyperlipidemia, unspecified; E11.9 Type 2 diabetes mellitus without complications; Z79.84 Long term (current) use of oral hypoglycemic drugs; R63.4 Abnormal weight loss; J98.4 Other disorders of lung; R68.83 Chills (without fever); R53.83 Other fatigue; M18.9 Osteoarthritis of first carpometacarpal joint, unspecified; M20.092 Other deformity of left finger(s); M20.091 Other deformity of right finger(s); R53.1 Weakness; R19.7 Diarrhea, unspecified; R26.9 Unspecified abnormalities of gait and mobility; Z20.822 Contact with and (suspected) exposure to COVID-19; Z02.9 Encounter for administrative examinations, unspecified; Z68.26 Body mass index [BMI] 26.0-26.9, adult; Z98.890 Other specified postprocedural states; Z90.710 Acquired absence of both cervix and uterus; Z90.722 Acquired absence of ovaries, bilateral; Z90.79 Acquired absence of other genital organ(s); Z87.81 Personal history of (healed) traumatic fracture; Z98.49 Cataract extraction status, unspecified eye; Z87.891 Personal history of nicotine dependence
CPT/HCPCS: 36415; 71045; 80048; 80076; 81001; 82962; 83605; 83880; 84145; 85025; 86140; 87040; 87086; 87493; 96360; 96361; 97110; 97116; 97162; 97165; 97535; 99284; A9270; G0378; J7030

== ENCOUNTER 2022-10-12 13:29 | Inpatient (IN) | payer SELFPAY ==
[2022-10-12 13:49] VITALS: BP 100/63; PULSE 60; RESP 18; TEMP 36.4; O2SAT 96
[2022-10-12 13:52] VITALS: BP 100/63; PULSE 60; RESP 18; TEMP 36.4; O2SAT 96
--- NOTE | 2022-10-12 14:22 | PC.SOCIAL ---
Addendum entered by RACHAEL Ma 10/12/22 16:17: halfway preadmission screening completed and submitted #[id number]. Original Note: Discharge plan: Late Entry: Prior to discharge, met with pt and in room. has been discussing possible admission to the [facility] for pt. He requested delinquency prevention social worker contact them to see if she could be admitted to this assisted living facility directly from the hospital. If this is not possible, is requesting admission to the [facility] for a short term rehab stay and is aware it would be private pay. Called [facility] and spoke with Chloe. Faxed requested information for evaluation for admit. Received call back from Chloe, stating they can evaluate pt for admit after she has completed her CDiff treatment and isolation requirement. Currently she is being treated through 10/19/22. Requested pt be evaluated for short term rehab stay at the [facility]. Pt has been approved for admit today and will be private pay. Met with pt and who are aware and agree to pay the required private pay amount. plans to continue to work with [facility] and hopes to move pt to that facility from the residential when able.
--- NOTE | 2022-10-12 14:43 | LTC.ADM ---
LTC Admission Note: o Admit from:Med Surg o Mode of transport: W/C o Accompanied by: o Transferred via: Assist of 1 w/walker o Admitting dx:Rheumatoid Arthritis, Pneumonia, C-diff,Weakness,HTN,DM-2, Dementia, Malnutrition.Falls,GERD o Mentation:Alert and oriented to person,self and place o Vital Signs:Bp 100/63,T97.6, P60,R 18, 96% on RA o Lung sounds: Clear o Overall condition: Stable o Pain:None o Mood/Behavior: None o Wound care:N/A o Assistance level with ADL?s: o Mobility:Assist of 1 with waker o Eating:Regular Diet
[2022-10-12 15:52] LABS: SARS PCR* Negative SARS-CoV-2 (Negative)
--- NOTE | 2022-10-12 17:13 | PC.NURSE ---
Resident was admitted today from the [facility]. Resident did not have a qualifying hospital stay due to no 3 day stay and was on observation 10/10/22-10/12/22. Resident and her updated that she does not qualify for her Medicare Part A benefit and will be private pay. Resident was in [facility] 10/03/22-10/05/22 and 10/08/22-10/09/22.
[2022-10-12 17:52] VITALS: BP 103/63; PULSE 68; RESP 18; TEMP 36.6; O2SAT 96
[2022-10-12 20:52] VITALS: BP 103/68; PULSE 66; RESP 18; TEMP 37.2; O2SAT 96
[2022-10-12] MEDS: TRAZODONE HCL 50 MG TABLET 25 MG PO (21:00)
--- NOTE | 2022-10-12 21:36 | PC.NURSE ---
COVID-19: Test completed this shift. Result came back negative.
--- NOTE | 2022-10-12 23:01 | PC.NURSE ---
New Med Orders - Written med orders prescribed by Doug Artis: * Lyrica (Pregabalin) 75 mg - 1 po at AM and 2 po at PM for 30 days. * Doxycycline Hyclate 100 mg PO twice daily. * Vancomycin 125 mg PO every 6 hours.
[2022-10-12] MEDS: VANCOMYCIN 125 MG CAPSULE PO (23:15)
[2022-10-13] MEDS: ACETAMINOPHEN 650 MG TABLET ER 1300 MG PO ×3 (00:24→23:40)
[2022-10-13 01:00] VITALS: BP 104/54; PULSE 70; RESP 18; TEMP 36.4; O2SAT 96
--- NOTE | 2022-10-13 01:45 | PC.NURSE ---
Admission note Resident was assisted to toilet,using walker and transfer belt. Vitals taken, normal, BP low,Mantoux given on left lower arm. Resident in bed now, resting.
[2022-10-13 05:00] VITALS: BP 127/70; PULSE 61; RESP 18; TEMP 36.6; O2SAT 100
[2022-10-13] MEDS: VANCOMYCIN 125 MG CAPSULE PO ×3 (05:45→17:08)
--- NOTE | 2022-10-13 06:45 | PC.NURSE ---
Admission note Resident did not complain about any discomfort, vitals normal, had two loose bowel movement , continue c-diff precautions. She got her scheduled Vancomycin at 0600 this morning.
[2022-10-13] MEDS: AMLODIPINE 5 MG TABLET 2.5 MG PO (07:29)
[2022-10-13] MEDS: carvediloL 6.25 MG TABLET PO ×2 (07:30→19:40)
[2022-10-13] MEDS: DOXYCYCLINE HYCLATE 100 MG CAPSULE PO (07:30)
[2022-10-13] MEDS: FOLIC ACID 1 MG TABLET PO (07:31)
[2022-10-13] MEDS: FLUTICASONE 110 MCG INHALER 2 PUFF IH ×2 (07:31→16:58)
[2022-10-13] MEDS: guaiFENesin 600 MG TAB.ER.12H PO ×2 (07:31→19:40)
[2022-10-13] MEDS: LACTOBACILLUS RHAMNOSUS GG 1 EACH PO ×2 (07:32→16:57)
[2022-10-13] MEDS: METFORMIN 500 MG TABLET PO (07:33)
[2022-10-13] MEDS: LOSARTAN POTASSIUM 50 MG TABLET PO (07:33)
[2022-10-13] MEDS: PREGABALIN 75 MG CAPSULE PO (07:33)
[2022-10-13] MEDS: timoloL maleate 0.5 % 1 DROP EYE-LEFT (07:35)
[2022-10-13] MEDS: MULTIVITAMIN/MINERALS 1 TABLET 1 TAB PO (07:35)
[2022-10-13] MEDS: NON-FORMULARY MEDICATION 2 EACH NOSTRIL-B (08:11)
[2022-10-13 11:09] VITALS: BP 127/76; PULSE 69; RESP 18; TEMP 36.4; O2SAT 95
--- NOTE | 2022-10-13 11:25 | PC.NURSE ---
Med clarification/Order: REGAN, Mariah here. Doxycycline done today, Vancomycin until October 19, discontinue Duoneb & Lyrica 75 mg daily.
--- NOTE | 2022-10-13 11:43 | PC.NURSE ---
Order: Check blood sugars daily by Mariah SPEARS.
[2022-10-13 15:00] VITALS: BP 110/70; PULSE 68; RESP 18; TEMP 36.3; O2SAT 96
[2022-10-13 19:00] VITALS: BP 107/68; PULSE 671; RESP 18; TEMP 36.3; O2SAT 95
[2022-10-13] MEDS: PREGABALIN 75 MG CAPSULE 150 MG PO (19:40)
[2022-10-13 23:00] VITALS: BP 138/73; PULSE 80; RESP 18; TEMP 36.2; O2SAT 93
[2022-10-14] MEDS: VANCOMYCIN 125 MG CAPSULE PO ×4 (00:19→17:28)
[2022-10-14 03:00] VITALS: BP 135/76; PULSE 78; RESP 16; TEMP 36.8; O2SAT 94
--- NOTE | 2022-10-14 04:37 | PC.NURSE ---
WEEKLY CHARTING WEEK 4 : COMMUNICATION,HEARING/VISION, COGNITION/BEHAVIORS Vitals are normal, no concerns. New admission (10/12) comprehensive and temporary care plan will be after 21 days of admission ; following the baseline care plan now. Resident can voice needs , alert with some confusion and forgetfulness. She has adequate hearing, has reading glasses. She is not on any psychotropic medications. Nurse does meds administration.
[2022-10-14] MEDS: carvediloL 6.25 MG TABLET PO ×2 (07:26→19:14)
[2022-10-14] MEDS: AMLODIPINE 5 MG TABLET 2.5 MG PO (07:26)
[2022-10-14] MEDS: FLUTICASONE 110 MCG INHALER 2 PUFF IH ×2 (07:26→15:26)
[2022-10-14] MEDS: FOLIC ACID 1 MG TABLET PO (07:26)
[2022-10-14] MEDS: guaiFENesin 600 MG TAB.ER.12H PO ×2 (07:26→19:14)
[2022-10-14] MEDS: LOSARTAN POTASSIUM 50 MG TABLET PO (07:27)
[2022-10-14] MEDS: LACTOBACILLUS RHAMNOSUS GG 1 EACH PO ×2 (07:27→15:26)
[2022-10-14] MEDS: METFORMIN 500 MG TABLET PO (07:27)
[2022-10-14] MEDS: MULTIVITAMIN/MINERALS 1 TABLET 1 TAB PO (07:28)
[2022-10-14] MEDS: timoloL maleate 0.5 % 1 DROP EYE-LEFT (07:30)
--- NOTE | 2022-10-14 07:36 | PC.NURSE ---
Admit Covid day 3 swab test done & sent to lab. Resident will be notified if result is positive.
[2022-10-14 08:02] LABS: SARS PCR* Negative SARS-CoV-2 (Negative)
[2022-10-14] MEDS: PREGABALIN 75 MG CAPSULE PO (09:22)
[2022-10-14] MEDS: ACETAMINOPHEN 650 MG TABLET ER 1300 MG PO ×2 (10:30→23:28)
--- NOTE | 2022-10-14 10:49 | NUTR.NU ---
RDN met with resident and her in room on this day to discuss coded Milk food allergy and moderate malnutrition diagnosis. Resident and her report that the resident can have foods with milk in them and can have other dairy products such as cheese, yogurt, and ice cream etc. Resident's notes that the resident has these foods frequently at home. Resident cannot tolerate a glass of milk or milk in cereal. RDN will report in IDT meeting and add to diet card for clarification. Resident has a decreased appetite and p.o. intakes per her prior to admission. Resident reports not liking Enlive Chocolate and is accepting of trying Ensure Clear BID at 1000 and 1400. RDN will order. Full assessment to follow.
--- NOTE | 2022-10-14 12:26 | PC.PHA1 ---
AUTOMOTIVE LUBE TECHNICIAN PHARMACIST'S MEDICATION REVIEW: MEDICATION MONITORING: Trazodone 25 mg hs prn IRREGULARITY OR COMMENTS:Patient just admitted few days ago after multiple hospital system stays for pneumonia and now she has c.diff being treated with oral vancomycin qid through early October. SUGGESTED COURSE OF ACTION TAKEN:No medication recommendations at this times
[2022-10-14 13:14] VITALS: BP 115/70; PULSE 68; RESP 18; TEMP 36.4; O2SAT 97
--- NOTE | 2022-10-14 15:31 | PC.SOCIAL ---
Received a phone call from resident's requesting that this worker reach out to [facility] at [phone]. Phone call to Chloe at [facility] at [phone]. Chloe requested an update on resident. Chloe states that they will likely wait for a face to face until after resident is off precautions for C-Diff next week and after the 20 of October Holiday Wednesday. Chloe requested updated notes for therapy, MD, and nursing notes. Printed notes and and faxed to [facility] at [phone]. Social work will follow up as needed.
[2022-10-14 17:00] VITALS: BP 123/63; PULSE 68; RESP 18; TEMP 36.3; O2SAT 93
[2022-10-14] MEDS: PREGABALIN 75 MG CAPSULE 150 MG PO (19:14)
[2022-10-14 20:40] VITALS: BP 132/60; PULSE 77; RESP 18; TEMP 36.6; O2SAT 95
[2022-10-15 05:17] VITALS: BP 129/72; PULSE 63; RESP 18; TEMP 36.4; O2SAT 93
[2022-10-15] MEDS: VANCOMYCIN 125 MG CAPSULE PO ×5 (05:19→23:32)
[2022-10-15] MEDS: LACTOBACILLUS RHAMNOSUS GG 1 EACH PO ×2 (08:12→15:52)
[2022-10-15] MEDS: guaiFENesin 600 MG TAB.ER.12H PO ×2 (08:12→19:00)
[2022-10-15] MEDS: AMLODIPINE 5 MG TABLET 2.5 MG PO (08:12)
[2022-10-15] MEDS: carvediloL 6.25 MG TABLET PO ×2 (08:12→19:00)
[2022-10-15] MEDS: FOLIC ACID 1 MG TABLET PO (08:12)
[2022-10-15] MEDS: FLUTICASONE 110 MCG INHALER 2 PUFF IH ×2 (08:12→15:49)
[2022-10-15] MEDS: MULTIVITAMIN/MINERALS 1 TABLET 1 TAB PO (08:13)
[2022-10-15] MEDS: METFORMIN 500 MG TABLET PO (08:13)
[2022-10-15] MEDS: LOSARTAN POTASSIUM 50 MG TABLET PO (08:13)
[2022-10-15] MEDS: timoloL maleate 0.5 % 1 DROP EYE-LEFT (08:14)
[2022-10-15] MEDS: PREGABALIN 75 MG CAPSULE PO (08:19)
--- NOTE | 2022-10-15 08:46 | PC.SPIRITC ---
I provided visit for connection and to introduce Eva to the Spiritual Care Department.
[2022-10-15] MEDS: ACETAMINOPHEN 650 MG TABLET ER 1300 MG PO ×2 (11:37→23:32)
--- NOTE | 2022-10-15 14:13 | PC.NURSE ---
TEDS: Resident does not have an order for TEDS, however she claims that she has been wearing TEDS at home all the time. Manager [employer] Sigma noted that her left lower extremity is slightly swollen and allow resident to wear it if she wants.
[2022-10-15] MEDS: PREGABALIN 75 MG CAPSULE 150 MG PO (19:02)
--- NOTE | 2022-10-16 07:28 | PC.NURSE ---
Admit Covid day 5 swab test done and sent to lab. Resident will be notified if result is positive.
[2022-10-16 08:22] LABS: SARS PCR* Negative SARS-CoV-2 (Negative)
[2022-10-16] MEDS: guaiFENesin 600 MG TAB.ER.12H PO ×2 (08:28→19:57)
[2022-10-16] MEDS: AMLODIPINE 5 MG TABLET 2.5 MG PO (08:28)
[2022-10-16] MEDS: FOLIC ACID 1 MG TABLET PO (08:28)
[2022-10-16] MEDS: carvediloL 6.25 MG TABLET PO ×2 (08:28→19:57)
[2022-10-16] MEDS: LOSARTAN POTASSIUM 50 MG TABLET PO (08:28)
[2022-10-16] MEDS: PREGABALIN 75 MG CAPSULE PO (08:29)
[2022-10-16] MEDS: METFORMIN 500 MG TABLET PO (08:29)
[2022-10-16] MEDS: MULTIVITAMIN/MINERALS 1 TABLET 1 TAB PO (08:29)
[2022-10-16] MEDS: LACTOBACILLUS RHAMNOSUS GG 1 EACH PO ×2 (08:31→16:37)
[2022-10-16] MEDS: FLUTICASONE 110 MCG INHALER 2 PUFF IH ×2 (08:32→16:35)
[2022-10-16] MEDS: timoloL maleate 0.5 % 1 DROP EYE-LEFT (09:12)
[2022-10-16] MEDS: VANCOMYCIN 125 MG CAPSULE PO ×3 (09:27→17:28)
[2022-10-16] MEDS: ACETAMINOPHEN 650 MG TABLET ER 1300 MG PO ×2 (11:27→23:31)
[2022-10-16 12:45] VITALS: BMI 25.8
--- NOTE | 2022-10-16 12:49 | PC.NURSE ---
MD Visit/Discharge Order: Resident seen by Dr. Wetzel. Discharge order to [facility] with outpatient PT/OT done by Dr. Wetzel.
[2022-10-16] MEDS: PREGABALIN 75 MG CAPSULE 150 MG PO (19:57)
[2022-10-17] MEDS: VANCOMYCIN 125 MG CAPSULE PO ×4 (00:26→17:30)
[2022-10-17] MEDS: FOLIC ACID 1 MG TABLET PO (08:59)
[2022-10-17] MEDS: FLUTICASONE 110 MCG INHALER 2 PUFF IH ×2 (08:59→16:04)
[2022-10-17] MEDS: AMLODIPINE 5 MG TABLET 2.5 MG PO (08:59)
[2022-10-17] MEDS: carvediloL 6.25 MG TABLET PO ×2 (08:59→20:03)
[2022-10-17] MEDS: guaiFENesin 600 MG TAB.ER.12H PO ×2 (09:00→20:03)
[2022-10-17] MEDS: METFORMIN 500 MG TABLET PO (09:00)
[2022-10-17] MEDS: MULTIVITAMIN/MINERALS 1 TABLET 1 TAB PO (09:00)
[2022-10-17] MEDS: LOSARTAN POTASSIUM 50 MG TABLET PO (09:00)
[2022-10-17] MEDS: LACTOBACILLUS RHAMNOSUS GG 1 EACH PO ×2 (09:00→16:04)
[2022-10-17] MEDS: timoloL maleate 0.5 % 1 DROP EYE-LEFT (09:01)
[2022-10-17] MEDS: PREGABALIN 75 MG CAPSULE PO (09:03)
[2022-10-17] MEDS: ACETAMINOPHEN 650 MG TABLET ER 1300 MG PO ×2 (11:24→23:47)
[2022-10-17] MEDS: PREGABALIN 75 MG CAPSULE 150 MG PO (20:03)
[2022-10-18] MEDS: VANCOMYCIN 125 MG CAPSULE PO ×4 (00:48→17:12)
[2022-10-18] MEDS: TRIAMCINOLONE ACETONIDE CREAM 0.1 % 1 APPLIC TOPICAL ×2 (01:53→10:30)
--- NOTE | 2022-10-18 02:00 | PC.NURSE ---
Scratches Resident has been trying very hard to scratch her mid-back , she got some scratch stoddard over that area. Nurse applied Triamcinolone cream over her back. It did ease the itching.
[2022-10-18] MEDS: AMLODIPINE 5 MG TABLET 2.5 MG PO (08:44)
[2022-10-18] MEDS: carvediloL 6.25 MG TABLET PO ×2 (08:44→19:52)
[2022-10-18] MEDS: FOLIC ACID 1 MG TABLET PO (08:45)
[2022-10-18] MEDS: guaiFENesin 600 MG TAB.ER.12H PO ×2 (08:45→19:52)
[2022-10-18] MEDS: LACTOBACILLUS RHAMNOSUS GG 1 EACH PO ×2 (08:45→16:17)
[2022-10-18] MEDS: LOSARTAN POTASSIUM 50 MG TABLET PO (08:45)
[2022-10-18] MEDS: FLUTICASONE 110 MCG INHALER 2 PUFF IH ×2 (08:45→16:17)
[2022-10-18] MEDS: METFORMIN 500 MG TABLET PO (08:45)
[2022-10-18] MEDS: timoloL maleate 0.5 % 1 DROP EYE-LEFT (08:46)
[2022-10-18] MEDS: MULTIVITAMIN/MINERALS 1 TABLET 1 TAB PO (08:46)
[2022-10-18] MEDS: PREGABALIN 75 MG CAPSULE PO (08:48)
[2022-10-18] MEDS: ACETAMINOPHEN 650 MG TABLET ER 1300 MG PO ×2 (11:19→23:33)
--- NOTE | 2022-10-18 14:55 | PC.SPIRITC ---
Slip Cover Estimator provided supportive visit to resident and her . Resident indicated that sanam or spirituality is not part of her life. Resident and her both affirmed the importance of family as meaningful to them. Resident is accepting being in a time of waiting as they apply for entrance into an assisted living facility in [place]. In the meantime resident is working on rebuilding strength after being hospitalized for pneumonia. Slip Cover Estimator provided illness narrative review, validation and words of encouragement.
[2022-10-18] MEDS: PREGABALIN 75 MG CAPSULE 150 MG PO (19:52)
[2022-10-19] MEDS: VANCOMYCIN 125 MG CAPSULE PO ×4 (00:15→19:03)
[2022-10-19] MEDS: AMLODIPINE 5 MG TABLET 2.5 MG PO (07:48)
[2022-10-19] MEDS: FOLIC ACID 1 MG TABLET PO (07:48)
[2022-10-19] MEDS: guaiFENesin 600 MG TAB.ER.12H PO ×2 (07:48→19:42)
[2022-10-19] MEDS: carvediloL 6.25 MG TABLET PO ×2 (07:48→19:42)
[2022-10-19] MEDS: LACTOBACILLUS RHAMNOSUS GG 1 EACH PO ×2 (07:49→15:45)
[2022-10-19] MEDS: LOSARTAN POTASSIUM 50 MG TABLET PO (07:49)
[2022-10-19] MEDS: MULTIVITAMIN/MINERALS 1 TABLET 1 TAB PO (07:50)
[2022-10-19] MEDS: METFORMIN 500 MG TABLET PO (07:50)
[2022-10-19] MEDS: FLUTICASONE 110 MCG INHALER 2 PUFF IH ×2 (07:51→15:45)
[2022-10-19] MEDS: timoloL maleate 0.5 % 1 DROP EYE-LEFT (07:52)
[2022-10-19] MEDS: PREGABALIN 75 MG CAPSULE PO (07:54)
--- NOTE | 2022-10-19 10:34 | PC.SOCIAL ---
Addendum entered by RACHAEL Ma 10/19/22 10:43: Spoke with Chloe at [facility] who confirmed nurse will come for face to face visit on Wednesday morning 10/21/22 at 8:30am. RN at [facility] and informed of this time. Original Note: Social work: Met with resident and at his request. states he has been speaking with Chloe at [facility] and that she will be contacting nursing home social worker to set up a face to face visit for Wednesday for evaluation for admission. requested nursing home social worker reach out to Chloe today to confirm visit plans. bushel worker to follow up as needed.
[2022-10-19] MEDS: ACETAMINOPHEN 650 MG TABLET ER 1300 MG PO ×2 (11:15→23:26)
[2022-10-19] MEDS: PREGABALIN 75 MG CAPSULE 150 MG PO (19:42)
[2022-10-19] MEDS: TRIAMCINOLONE ACETONIDE CREAM 0.1 % 1 APPLIC TOPICAL (23:50)
[2022-10-20] MEDS: TRIAMCINOLONE ACETONIDE CREAM 0.1 % 1 APPLIC TOPICAL ×2 (04:30→16:32)
[2022-10-20] MEDS: carvediloL 6.25 MG TABLET PO ×2 (08:22→19:29)
[2022-10-20] MEDS: AMLODIPINE 5 MG TABLET 2.5 MG PO (08:22)
[2022-10-20] MEDS: MULTIVITAMIN/MINERALS 1 TABLET 1 TAB PO (08:22)
[2022-10-20] MEDS: LACTOBACILLUS RHAMNOSUS GG 1 EACH PO ×2 (08:22→15:21)
[2022-10-20] MEDS: FOLIC ACID 1 MG TABLET PO (08:22)
[2022-10-20] MEDS: FLUTICASONE 110 MCG INHALER 2 PUFF IH ×2 (08:22→15:18)
[2022-10-20] MEDS: METFORMIN 500 MG TABLET PO (08:22)
[2022-10-20] MEDS: LOSARTAN POTASSIUM 50 MG TABLET PO (08:22)
[2022-10-20] MEDS: guaiFENesin 600 MG TAB.ER.12H PO ×2 (08:22→19:29)
[2022-10-20] MEDS: timoloL maleate 0.5 % 1 DROP EYE-LEFT (08:23)
[2022-10-20] MEDS: PREGABALIN 75 MG CAPSULE PO (08:26)
[2022-10-20] MEDS: ACETAMINOPHEN 650 MG TABLET ER 1300 MG PO ×2 (11:35→23:02)
[2022-10-20] MEDS: PREGABALIN 75 MG CAPSULE 150 MG PO (19:29)
--- NOTE | 2022-10-21 02:30 | PC.NURSE ---
Weekly Charting Week 1: Vital signs reviewed with no concerns. Temporary and baseline care plan reviewed with no changes made. Has? history of muscle ache. Receives Pregabalin 75mg AM and 150 mg HS. Acetaminophen 1300mg every 12hrs. Able to report pain verbally.? Res is? assist of 1 with dressing, grooming, and bathing. Able to complete oral cares independently after set-up. On regular textures and thin liquids. No documented chewing/swallowing problems. Eats independently after set-up.
--- NOTE | 2022-10-21 06:38 | PC.NURSE ---
Weekly Charting, Week 1-ADL's: baseline and temporary care plan reviewed. No changes made and nothing added to temporary care plan. Resident needs one assist with dressing and bathing. Is independent with oral cares and feeding after set up. Is on regular diet, thin liquids. No problem with chewing/swallowing reported. Vital signs reviewed, no concerns. Pain: Has history of muscle pain managed with Lyrica 75 mg in AM & 150 mg HS, Tylenol 1300 mg Q12 hours. Pain regimen is effective. Resident is able to verbalize need for pain.
[2022-10-21 07:00] VITALS: BP 114/60; PULSE 75; RESP 18; TEMP 36.8; O2SAT 97; BMI 25.0
[2022-10-21] MEDS: FLUTICASONE 110 MCG INHALER 2 PUFF IH ×2 (07:51→16:52)
[2022-10-21] MEDS: timoloL maleate 0.5 % 1 DROP EYE-LEFT (07:51)
[2022-10-21] MEDS: carvediloL 6.25 MG TABLET PO ×2 (07:58→20:03)
[2022-10-21] MEDS: LOSARTAN POTASSIUM 50 MG TABLET PO (07:58)
[2022-10-21] MEDS: LACTOBACILLUS RHAMNOSUS GG 1 EACH PO ×2 (07:58→16:52)
[2022-10-21] MEDS: guaiFENesin 600 MG TAB.ER.12H PO ×2 (07:58→20:03)
[2022-10-21] MEDS: AMLODIPINE 5 MG TABLET 2.5 MG PO (07:58)
[2022-10-21] MEDS: FOLIC ACID 1 MG TABLET PO (07:58)
[2022-10-21] MEDS: PREGABALIN 75 MG CAPSULE PO (07:58)
[2022-10-21] MEDS: MULTIVITAMIN/MINERALS 1 TABLET 1 TAB PO (07:59)
[2022-10-21] MEDS: METFORMIN 500 MG TABLET PO (07:59)
[2022-10-21] MEDS: ACETAMINOPHEN 650 MG TABLET ER 1300 MG PO ×2 (11:20→23:19)
[2022-10-21] MEDS: PREGABALIN 75 MG CAPSULE 150 MG PO (20:03)
[2022-10-21] MEDS: TRIAMCINOLONE ACETONIDE CREAM 0.1 % 1 APPLIC TOPICAL (21:49)
[2022-10-22] MEDS: FOLIC ACID 1 MG TABLET PO (07:14)
[2022-10-22] MEDS: FLUTICASONE 110 MCG INHALER 2 PUFF IH ×2 (07:14→16:36)
[2022-10-22] MEDS: MULTIVITAMIN/MINERALS 1 TABLET 1 TAB PO (07:14)
[2022-10-22] MEDS: METFORMIN 500 MG TABLET PO (07:14)
[2022-10-22] MEDS: AMLODIPINE 5 MG TABLET 2.5 MG PO (07:14)
[2022-10-22] MEDS: LACTOBACILLUS RHAMNOSUS GG 1 EACH PO ×2 (07:14→16:36)
[2022-10-22] MEDS: LOSARTAN POTASSIUM 50 MG TABLET PO (07:14)
[2022-10-22] MEDS: carvediloL 6.25 MG TABLET PO ×2 (07:14→19:10)
[2022-10-22] MEDS: guaiFENesin 600 MG TAB.ER.12H PO ×2 (07:14→19:10)
[2022-10-22] MEDS: PREGABALIN 75 MG CAPSULE PO (07:14)
[2022-10-22] MEDS: timoloL maleate 0.5 % 1 DROP EYE-LEFT (07:15)
[2022-10-22] MEDS: ACETAMINOPHEN 650 MG TABLET ER 1300 MG PO ×2 (11:05→23:13)
--- NOTE | 2022-10-22 13:05 | REH.OT ---
Cognitive Assessment Report [facility]: Occupational Therapy Department Patient: ?Norma Cunningham Date: ?10/22/22 Tests Performed and Interpretations 1. [place] Cognitive Assessment (MoCA)? Score: 03/18 26-30 = Normal cognition? A score of less than 26 indicates need for further cognitive assessments 2. Safety and Problem-Solving Questionnaire??? Score: ?6.09/02 A score of less than 15 indicates deficits with safety awareness and problem-solving 3. Cognitive Performance Test (CPT)? Score: ? Normal function = 5.6 CPT Interpretation: 4.07/5.6 ? CPT Level: CPT level 4.0-4.4 (?Problems are more obvious?) Unable to complete daily tasks and difficulty with self care tasks. Shows decreased initiation and completion of self care tasks. Significant decline in memory and inability to plan, reason, and maintain own safety. Live alone with capable adult, may be able to be alone for parts of the day, appropriate for assisted living facility. 24 Hour supervision recommended to ensure safety Considerations: 1)Managing medications Caregiver assumes all responsibility for set-up and compliance Observe person as they swallow medication 2) Managing finances May require total supervision 3) Transportation and shopping Driving is not recommended; arrange alternative transportation 4) Meal management Assistance to ensure a balanced diet and to follow any dietary restrictions Meal planning, shopping and cooking not recommended unless close supervision and assistance is provided 5) Safety and planning/initiating tasks Shower adaptive equipment: shower chair/bath bench, grab bars, and hand held shower head Remove unsteady furniture, small rugs and objects from floor Adjust hot water thermostat Supervise closely around stove or appliances Use appliances with automatic shut-off Keep medications and toxic chemicals out of reach Lock away all power tools and guns 6) Managing calendar/schedule Establish and help maintain and daily routine Use a large calendar in plain sight, with ongoing assistance for consistent use 7) Dressing, hygiene, and grooming Assistance remember all steps and setting up supplies Monitor frequency and quality of bathing Monitor frequency of changing clothes Place toiletries in the same location and in plain sight Verbal prompts to attend to details Reminders for weather appropriate clothing and to wear sunscreen 8) Laundry and cleaning Assistance to monitor frequency and quality Helpful learning strategies: 1) Provide cues to assist with focusing on the present task 2) Teach tasks using demonstration, verbal instruction, slow pace and repetition- one task at a time 3) Practice safety routines and tasks frequency 4) Assistance required to sequence steps of activities, particularly when novel 5) Person may not be able to generalize learning across different environments, therefore assistance should be provided in new situations or environments 6) Avoid giving directions over the phone or in writing 7) Person may only recognize immediate or concrete consequences of actions and will require assistance for realistic planning and goal setting. Performance Observations noted with ADLS: Eva has been participating in ADL tasks and functional mobility with min Assist provided by staff members. ?She continues to use a 4ww with seat for mobility and needs cues for safety awareness, problem solving and for consistent use of brakes with transitions.? Due to Eva?s posture and weakness impacting her balance, she does present at risk for falls.? An alarm is used in the bed and chair to alert staff if Eva attempts to get up without waiting for assistance to reduce her risk for falls. She presents with the need for 24 hour supervision and assist x1 for safe management of ADLs.? Eva?s spouse reports they plan to move into an [facility] in [facility] and will be receiving assistance for bathing and meals.? Eva?s spouse continues to provide assist for ADLs and IADLs including medication management, transportation, finances as he had in their own home. ? REENA Portillo/Bigg ? 10/22/22 Occupational Therapist? Date ?
--- NOTE | 2022-10-22 16:40 | PC.SOCIAL ---
Addendum entered by CLINT Russell 10/22/22 16:46: Resident's requested an update via phone (cell phone) on how resident's OT evaluation went today. Informed that this worker will follow up with OT. Left voicemail for Liset Davis in OT. Original Note: Met with resident and resident's to discuss discharge plans. Resident will discharge on WednesdayOctober 26. Time will be determined by [facility]. Resident's was hopeful that resident could discharge tomorrow. Informed that resident has to have discharge orders completed and informed that [facility] is not prepared to take resident until Wednesday. Social work will follow up as needed.
[2022-10-22] MEDS: PREGABALIN 75 MG CAPSULE 150 MG PO (19:10)
--- NOTE | 2022-10-22 23:41 | PC.NURSE ---
MDS CLARIFICATION: Discrepancies in ALEX ADL charting noted. Staff were interviewed for clarification. Eating: staff report that resident was independent at meals and only required set up assist during the lookback. Coded as such.
[2022-10-23] MEDS: AMLODIPINE 5 MG TABLET 2.5 MG PO (08:28)
[2022-10-23] MEDS: FLUTICASONE 110 MCG INHALER 2 PUFF IH ×2 (08:28→15:19)
[2022-10-23] MEDS: carvediloL 6.25 MG TABLET PO ×2 (08:28→20:29)
[2022-10-23] MEDS: LOSARTAN POTASSIUM 50 MG TABLET PO (08:29)
[2022-10-23] MEDS: LACTOBACILLUS RHAMNOSUS GG 1 EACH PO ×2 (08:29→15:22)
[2022-10-23] MEDS: FOLIC ACID 1 MG TABLET PO (08:29)
[2022-10-23] MEDS: guaiFENesin 600 MG TAB.ER.12H PO ×2 (08:29→20:29)
[2022-10-23] MEDS: PREGABALIN 75 MG CAPSULE PO (08:29)
[2022-10-23] MEDS: METFORMIN 500 MG TABLET PO (08:30)
[2022-10-23] MEDS: timoloL maleate 0.5 % 1 DROP EYE-LEFT (08:30)
[2022-10-23] MEDS: MULTIVITAMIN/MINERALS 1 TABLET 1 TAB PO (08:30)
[2022-10-23] MEDS: ACETAMINOPHEN 650 MG TABLET ER 1300 MG PO ×2 (11:16→23:52)
--- NOTE | 2022-10-23 11:22 | PC.NURSE ---
Order: Discharge plan for Wednesday renewed by Dr. Wetzel.
[2022-10-23] MEDS: PREGABALIN 75 MG CAPSULE 150 MG PO (20:29)
[2022-10-24] MEDS: AMLODIPINE 5 MG TABLET 2.5 MG PO (07:33)
[2022-10-24] MEDS: guaiFENesin 600 MG TAB.ER.12H PO ×2 (07:34→20:15)
[2022-10-24] MEDS: carvediloL 6.25 MG TABLET PO ×2 (07:34→20:15)
[2022-10-24] MEDS: FOLIC ACID 1 MG TABLET PO (07:34)
[2022-10-24] MEDS: FLUTICASONE 110 MCG INHALER 2 PUFF IH ×2 (07:34→15:43)
[2022-10-24] MEDS: LACTOBACILLUS RHAMNOSUS GG 1 EACH PO ×2 (07:34→15:43)
[2022-10-24] MEDS: LOSARTAN POTASSIUM 50 MG TABLET PO (07:34)
[2022-10-24] MEDS: timoloL maleate 0.5 % 1 DROP EYE-LEFT (07:35)
[2022-10-24] MEDS: PREGABALIN 75 MG CAPSULE PO (07:35)
[2022-10-24] MEDS: MULTIVITAMIN/MINERALS 1 TABLET 1 TAB PO (07:35)
[2022-10-24] MEDS: METFORMIN 500 MG TABLET PO (07:35)
[2022-10-24] MEDS: ACETAMINOPHEN 650 MG TABLET ER 1300 MG PO ×2 (11:46→22:44)
[2022-10-24] MEDS: PREGABALIN 75 MG CAPSULE 150 MG PO (20:15)
[2022-10-25] MEDS: AMLODIPINE 5 MG TABLET 2.5 MG PO (07:32)
[2022-10-25] MEDS: FLUTICASONE 110 MCG INHALER 2 PUFF IH ×2 (07:32→15:58)
[2022-10-25] MEDS: carvediloL 6.25 MG TABLET PO ×2 (07:32→19:47)
[2022-10-25] MEDS: FOLIC ACID 1 MG TABLET PO (07:32)
[2022-10-25] MEDS: guaiFENesin 600 MG TAB.ER.12H PO ×2 (07:34→19:47)
[2022-10-25] MEDS: LOSARTAN POTASSIUM 50 MG TABLET PO (07:34)
[2022-10-25] MEDS: LACTOBACILLUS RHAMNOSUS GG 1 EACH PO ×2 (07:34→15:59)
[2022-10-25] MEDS: PREGABALIN 75 MG CAPSULE PO (07:35)
[2022-10-25] MEDS: MULTIVITAMIN/MINERALS 1 TABLET 1 TAB PO (07:35)
[2022-10-25] MEDS: METFORMIN 500 MG TABLET PO (07:35)
[2022-10-25] MEDS: timoloL maleate 0.5 % 1 DROP EYE-LEFT (07:36)
[2022-10-25] MEDS: ACETAMINOPHEN 650 MG TABLET ER 1300 MG PO ×2 (11:38→22:53)
--- NOTE | 2022-10-25 14:51 | PC.NURSE ---
Loose stool: Resident had 2 episode of loose stool .Staff to monitor and give Loperamide if she continues to have more episode.
[2022-10-25] MEDS: PREGABALIN 75 MG CAPSULE 150 MG PO (19:47)
[2022-10-26] MEDS: AMLODIPINE 5 MG TABLET 2.5 MG PO (07:25)
[2022-10-26] MEDS: LACTOBACILLUS RHAMNOSUS GG 1 EACH PO (07:26)
[2022-10-26] MEDS: guaiFENesin 600 MG TAB.ER.12H PO (07:26)
[2022-10-26] MEDS: METFORMIN 500 MG TABLET PO (07:26)
[2022-10-26] MEDS: carvediloL 6.25 MG TABLET PO (07:26)
[2022-10-26] MEDS: MULTIVITAMIN/MINERALS 1 TABLET 1 TAB PO (07:26)
[2022-10-26] MEDS: FOLIC ACID 1 MG TABLET PO (07:26)
[2022-10-26] MEDS: LOSARTAN POTASSIUM 50 MG TABLET PO (07:26)
[2022-10-26] MEDS: FLUTICASONE 110 MCG INHALER 2 PUFF IH (07:26)
[2022-10-26] MEDS: PREGABALIN 75 MG CAPSULE PO (07:26)
[2022-10-26] MEDS: timoloL maleate 0.5 % 1 DROP EYE-LEFT (07:26)
--- NOTE | 2022-10-26 11:00 | PC.NURSE ---
Orders note: REGAN Lemus gave new orders to D/C PRN orders for Trazodone, Sodium Chloride nebs, Ipratropium-albuterol nebs and Benzonatate.
--- NOTE | 2022-10-26 11:47 | PC.NURSE ---
Resident discharged to [facility] at 1130 today. All medications were sent with resident and her including controlled substances per order given by MD Scar Wetzel. Resident and removed all personal belongings from room.
--- NOTE | 2022-11-02 12:34 | PC.NURSE ---
MDS: Sig change MDS was not completed as resident discharged within the 8th day of the lookback period.
== END 2022-10-26 11:30 | DRG 947 ==
PROVIDERS: Family Medicine; Admitting Provider Family Medicine; Family Provider Nurse Practitioner Gerontology; Visit Provider Family Medicine
DX: R53.1 Weakness (principal); J18.9 Pneumonia, unspecified organism; M31.30 Wegener's granulomatosis without renal involvement; A04.72 Enterocolitis due to Clostridium difficile, not specified as recurrent; E46 Unspecified protein-calorie malnutrition; E11.9 Type 2 diabetes mellitus without complications; F03.90 Unspecified dementia, unspecified severity, without behavioral disturbance, psychotic disturbance, mood disturbance, and anxiety; I10 Essential (primary) hypertension; R91.8 Other nonspecific abnormal finding of lung field
CPT/HCPCS: 87635; 97110; 97112; 97116; 97162; 97165; 97530; 97535